=== PATIENT | male | born 1985 | race Caucasian/White ===

== ENCOUNTER 2021-03-17 02:33 | Emergency (ER) | payer SELFPAY ==
[~2021-03-17] VITALS: Ht 182.9 cm; Wt 84.1 kg
[2021-03-17] MEDS ORDERED: ibuprofen tablet 400 MG TABLET PO STA (02:51)
[2021-03-17 05:25] VITALS: BP 112/59
== END 2021-03-17 05:26 | disposition home or self-care (01) ==
LOC: ER 02:34
DX: U07.1 COVID-19 (principal)
CPT/HCPCS: 71045; 99283